=== PATIENT | female | born 1955 | race Caucasian/White ===

== ENCOUNTER 2018-11-24 05:44 | Day surgery (SDC) | payer OTHER ==
[2018-11-24] MEDS ORDERED: LIDOCAINE 100 MG SYRINGE (07:29)
[2018-11-24] MEDS ORDERED: PROPOFOL 40 ML (07:29)
[2018-11-24] MEDS ORDERED: GLYCOPYRROLATE 0.4 MG INJ (07:29)
== END 2018-11-24 14:10 | disposition home or self-care (01) ==
LOC: GIL 05:44
DX: Z12.11 Encounter for screening for malignant neoplasm of colon (principal); K64.4 Residual hemorrhoidal skin tags; D12.3 Benign neoplasm of transverse colon; K57.30 Diverticulosis of large intestine without perforation or abscess without bleeding; E11.9 Type 2 diabetes mellitus without complications; I10 Essential (primary) hypertension; E78.5 Hyperlipidemia, unspecified; E66.01 Morbid (severe) obesity due to excess calories; Z68.38 Body mass index [BMI] 38.0-38.9, adult
CPT/HCPCS: 45380; 82962